=== PATIENT | male | born 1980 | race Caucasian/White ===

== ENCOUNTER 2018-05-02 00:46 | Emergency (ER) | payer SELFPAY ==
[2018-05-02] MEDS ORDERED: KETOROLAC TROMETHAMINE INJ/PF 30 MG/1 ML SDV IV ONE (01:35)
[2018-05-02] MEDS ORDERED: NORMAL SALINE 1000 ML 1,000 ML IV PRN (01:36)
[2018-05-02 01:47] LABS: ABSOLUTE BASOPHILS # (AUTO) 0.2 10^3/uL (0.0-0.2); ABSOLUTE EOSINOPHILS # (AUTO) 0.3 10^3/uL (0.0-0.6); ABSOLUTE LYMPHOCYTES (AUTO) 4.7 10^3/uL (0.5-4.7); ABSOLUTE MONOCYTES (AUTO) 0.7 10^3/uL (0.1-1.4); ABSOLUTE NEUT (AUTO) 6.6 10^3/uL (1.7-8.2); BASOPHILS % (AUTO) 1.4 % (0-2); EOSINOPHILS % (AUTO) 2.6 % (0-6); HEMOGLOBIN 13.7 g/dL (13.5-17.0); LYMPHOCYTES % (AUTO) 37.3 % (13-45); MEAN CORPUSCULAR HEMOGLOBIN 29.4 pg (27.0-33.4); MEAN CORPUSCULAR HGB CONC 34.3 g/dL (32.0-36.0); MEAN CORPUSCULAR VOLUME 86 fl (80-97); MONOCYTES % (AUTO) 5.9 % (3-13); PLATELET COUNT 392 10^3/uL (150-450); RED BLOOD COUNT 4.67 10^6/uL (4.35-5.55); RED CELL DISTRIBUTION WIDTH 13.8 % (11.5-14.0); SEGMENTED NEUTROPHILS % (AUTO) 52.8 % (42-78); TOTAL CELLS COUNTED % (AUTO) 100 %; WHITE BLOOD COUNT 12.6 10^3/uL (4.0-10.5)
[2018-05-02 01:56] LABS: APPEARANCE,URINE CLEAR; BILIRUBIN,URINE NEGATIVE (NEGATIVE); COLOR,URINE YELLOW; GLUCOSE, URINE NEGATIVE (NEGATIVE); KETONES,URINE NEGATIVE (NEGATIVE); LEUKOCYTE ESTERASE,URINE NEGATIVE (NEGATIVE); NITRITE,URINE NEGATIVE (NEGATIVE); PROTEIN,URINE NEGATIVE (NEGATIVE); URINE SPECIFIC GRAVITY 1.019; UROBILINOGEN,URINE NEGATIVE mg/dL (<2.0)
[2018-05-02 02:02] LABS: ALANINE AMINOTRANSFERASE 38 U/L (21-72); ALBUMIN 5.1 g/dL (3.5-5.0); ALKALINE PHOSPHATASE 119 U/L (38-126); ANION GAP 12 (5-19); ASPARTATE AMINO TRANSFERASE 33 U/L (17-59); BILIRUBIN,DIRECT 0.2 mg/dL (0.0-0.4); BILIRUBIN,TOTAL 0.3 mg/dL (0.2-1.3); BLOOD UREA NITROGEN 20 mg/dL (7-20); CALCIUM 10.2 mg/dL (8.4-10.2); CARBON DIOXIDE 26 mmol/L (22-30); CHLORIDE 102 mmol/L (98-107); GLUCOSE 138 mg/dL (75-110); LIPASE 129.3 U/L (23-300); POTASSIUM 4.5 mmol/L (3.6-5.0); TOTAL PROTEIN 8.1 g/dL (6.3-8.2)
[2018-05-02] MEDS ORDERED: MORPHINE SULFATE 10 MG/ML INJ IV ONE (02:58)
--- NOTE | 2018-05-02 03:00 | ER Document Report ---
ED General - General Chief Complaint: Abdominal Pain Stated Complaint: ABDOMINAL/BACK PAIN Time Seen by Provider: 05/02/18 02:43 Notes: Patient is a pleasant 38-year-old male presents with complaint of bilateral back pain rating around the flanks. No dysuria. Some pain in the suprapubic region. Patient says feels similar to what he had when he had kidney stones 4 years ago. He said he actually did have surgery to remove the kidney stones. No fevers. Some nausea. No vomiting. No diarrhea. No recent trauma or injuries. No weakness or numbness into the legs. No other complaints at this time. TRAVEL OUTSIDE OF THE [place] IN LAST 30 DAYS: No - Related Data Allergies/Adverse Reactions: red dye Allergy (Verified 05/02/18 00:53) Past Medical History - Social History Smoking Status: Current Some Day Smoker Frequency of alcohol use: None Drug Abuse: None Family History: Reviewed & Not Pertinent Patient has suicidal ideation: No Patient has homicidal ideation: No - Past Medical History Cardiac Medical History: Reports: Hx Hypercholesterolemia, Hx Hypertension Renal/ Medical History: Reports: Hx Kidney Stones. Denies: Hx Peritoneal Dialysis Review of Systems - Review of Systems Notes: My Normal Review Basic REVIEW OF SYSTEMS: CONSTITUTIONAL : Denies fever, chills, or sweats. Denies recent illness. RESPIRATORY: Denies cough, cold, or chest congestion. Denies shortness of breath, difficulty breathing, or wheezing. GASTROINTESTINAL: Some flank and suprapubic pain. Some nausea GENITOURINARY: Denies difficulty urinating, painful urination, burning, frequency, or blood in urine. MUSCULOSKELETAL: Bilateral low back pain. SKIN: Denies rash or skin lesions. NEUROLOGICAL: Denies altered mental status or loss of consciousness. Denies headache. Denies weakness or paralysis or loss of use of either side. Denies problems with gait or speech. Denies sensory or motor loss. ALL OTHER SYSTEMS REVIEWED AND NEGATIVE. Physical Exam - Vital signs Vitals: Temp Pulse BP Pulse Ox 98.0 F 98 124/80 95 05/02/18 00:55 05/02/18 00:55 05/02/18 00:55 05/02/18 00:55 - Notes Notes: General Appearance: Well nourished, alert, cooperative, no acute distress, moderate obvious discomfort. Vitals: reviewed, See vital signs table. Head: no swelling or tenderness to the head Eyes: PERRL, EOMI, Conjuctiva clear Mouth: No decreasd moisture Throat: No tonsillar inflammation, No airway obstruction, No lymphadenopathy Neck: Supple, no neck tenderness, No thyromegaly Lungs: No wheezing, No rales, No rhonci, No accessory muscle use, good air exchange bilaterally. Heart: Normal rate, Regular rythm, No murmur, no rub Abdomen: Normal BS, soft, No rigidity, mild suprapubic abdominal tenderness to palpation., No guarding, no rebound, no abdominal masses, no organomegaly Back: Mild pain to palpation over bilateral upper lumbar paraspinal musculature. Extremities: strength 5/5 in all extremities, good pulses in all extremities, no swelling or tenderness in the extremities, no edema. Skin: warm, dry, appropriate color, no rash Neuro: speech clear, oriented x 3, normal affect, responds appropriately to questions. Course - Re-evaluation Re-evalutation: 05/02/18 06:37 Exact cause of the patient's back pain is not 100% clear. He does have some pain reproducible palpation. Pain does radiate around his flanks into his lower abdomen. CT scan looking for kidney stones completely normal except for some signs of some ileus. Informed him his pain is not related to the stone. He has no blood in his urine. No signs of infection in his urine. Suspect that the ileus is probably due to his pain. I will still give him some MiraLAX if it helps resolve some of the ileus. I informed him that his pain could be related to the pinched nerve in his back. Patient says he has been doing a lot of work with his been lifting heavy beams over the last week. He says that back has been worsening pain with doing this. I informed him that even though the pain seems musculoskeletal exam he should still a low threshold to return to ER if he has worsening pain, fevers, vomiting, or feels unwell. Being that he does have pain rating into the abdomen I told him that he should return to ER for reevaluation in 2 days if he still having the ongoing pain. Patient agrees with plan will be discharged home. Dictation of this chart was performed using voice recognition software; therefore, there may be some unintended grammatical errors. - Vital Signs Vital signs: Temp Pulse Resp BP Pulse Ox 98.5 F 82 16 149/89 H 95 05/02/18 05:11 05/02/18 05:11 05/02/18 05:11 05/02/18 05:11 05/02/18 05:11 - Laboratory Result Diagrams: 05/02/18 01:37 05/02/18 01:37 Laboratory results interpreted by me: 05/02/18 05/02/18 01:37 01:37 WBC 12.6 H Glucose 138 H Albumin 5.1 H Discharge - Discharge Clinical Impression: Abdominal pain Qualifiers: Abdominal location: lower abdomen, unspecified Qualified Code(s): R10.30 - Lower abdominal pain, unspecified Back pain Qualifiers: Back pain location: low back pain Chronicity: chronic Back pain laterality: bilateral Sciatica presence: unspecified whether sciatica present Qualified Code(s): M54.5 - Low back pain Condition: Good Disposition: HOME, SELF-CARE Additional Instructions: Please take the MiraLAX as prescribed the bowel long. CT scan showed some evidence of possible ileus which is slowing of the bowel is likely related to the pain that you are having. Your pain could be coming from an actual pinched nerve in your back or back injury. Please avoid heavy lifting for the next 2 days. Please take the Fleming sparingly and only when your pain is more intense. Otherwise please try to take ibuprofen or Motrin for pain. Your CT scan and blood work does not show any serious or life-threatening cause of your pain; however, we always feel it is very important for you to return for reevaluation if you are still having pain as sometimes the cause of your pain will become more apparent on reevaluation and repeat testing. Please return to the ER in 2 days for reevaluation if you are still having any pain. Return to the ER immediately if you have fevers, intractable vomiting, worsening pain, blood in her stool, or feel unwell. Prescriptions: Polyethylene Glycol 3350 [Miralax] 1 cap PO DAILY #527 powder
--- NOTE | 2018-05-02 03:43 | RADIOLOGY REPORT (SQ) ---
EXAM DESCRIPTION: CT ABDOMEN WITHOUT IV CONTRAST COMPLETED DATE/TME: 05/02/2018 02:58 CLINICAL HISTORY: 38 years, Male, flank pain bilateral Comparison: None TECHNIQUE: Contiguous axial CT images of the abdomen and pelvis were obtained. Sagittal and coronal reformats were reviewed. This exam was performed according to our departmental dose-optimization program, which includes automated exposure control, adjustment of the mA and/or kV according to patient size and/or use of iterative reconstruction technique. FINDINGS: Lung bases: Clear. Liver:Unremarkable. No focal liver lesion. Gallbladder:Unremarkable. No gallstones. No gallbladder wall thickening or pericholecystic fluid. Spleen:Unremarkable Pancreas: Pancreas is unremarkable. Adrenal glands:Within normal limits. Kidneys/ureters: 2 mm nonobstructive calculus in the left upper pole. No nephrolithiasis on the right. No hydronephrosis. Stomach/small bowel/colon: Stomach is unremarkable. Several mildly prominent loops of small bowel in the left hemiabdomen. No abnormal air-fluid levels. Colon is unremarkable. Appendix: No evidence of appendicitis. Peritoneum: No free fluid. Vascular structures: Scattered atherosclerotic calcifications Lymph nodes: No abnormal lymph nodes. Bladder:Unremarkable. Pelvic organs: No acute abnormality Bones: No acute osseous abnormality. Soft tissues: Unremarkable.. IMPRESSION: Several mildly prominent loops of small bowel in the left hemiabdomen. These findings may be related to peristalsis however nonspecific enteritis or partial small bowel obstruction are also considerations. Nonobstructive left nephrolithiasis.
[2018-05-02] MEDS ORDERED: HYDROCODONE/ACETAMINOPHEN 5-325 MG (6 TAB/ER DISP) PO PRN (04:54)
[2018-05-02] MEDS ORDERED: POLYETHYLENE GLYCOL 3350 POWDER 17 GM/1 PACKET PO ONE (04:55)
[2018-05-02] MEDS ORDERED: ONDANSETRON 4 MG TAB.RAPDIS PO ONE (04:55)
[2018-05-02 05:12] VITALS: BP 149/89
== END 2018-05-02 05:12 | disposition home or self-care (01) ==
LOC: ER 00:46
DX: M54.5 Low back pain (principal); R10.30 Lower abdominal pain, unspecified; Z87.440 Personal history of urinary (tract) infections; R11.0 Nausea; I10 Essential (primary) hypertension; F17.200 Nicotine dependence, unspecified, uncomplicated; Z91.048 Other nonmedicinal substance allergy status
CPT/HCPCS: 99284; 96361; 96374; 96375; 36415; 83690; 85025; 80053; 81001; 76380; S0119; J1885; J2270; J7030